=== PATIENT | male | born 1955 | race Caucasian/White ===

== ENCOUNTER 2024-06-09 14:10 | Inpatient (IN) | payer OTHER, MEDICARE, SELFPAY ==
[2024-06-09 11:45] VITALS: BP 156/98
--- NOTE | 2024-06-09 12:15 | ED.GENMED ---
History of Present Illness
General
Chief Complaint: Skin Problem
Source: patient
Exam Limitations: none
Time Seen by Provider: 06/09/24 12:04
History of Present Illness
History of Present Illness:
69-year-old male history of prediabetic and neuropathy history presents complaining of several days of worsening redness swelling and discharge from the right foot. He states he has had a wart on his foot for quite some time that became more
irritated. He denies fevers or chills. He was seen by his family doctor and sent here for further evaluation. No known injury. No other complaints at this time.
Phy Exam
Physical Exam
Physical Exam:
General: Well appearing male, NAD
HEENT: NC/AT
Heart: RRR, no murmurs
Lungs; CTA bilaterally
Skin: Ulcer noted to the plantar surface of the foot on the right side. This is fairly deep with surrounding erythema and soft tissue swelling. The whole right foot is swollen and erythematous there is a slight amount of erythema spreading into
the distal moreno.
Vascular: Palpable DP pulse right foot
Course
Orders/Labs/Results
Orders:
Orders
06/09/24 12:14
CR Foot - Right Min 3 Views Urgent
Comment:
Reason For Exam: infection
06/09/24 12:29
Complete Blood Count/With Diff Urgent
Comprehensive Metabolic Panel Urgent
Blood Culture Q30M
ABRAHAM Source: Blood/Venous
Specimen Description:
06/09/24 12:30
Blood Culture Q30M
ABRAHAM Source: Blood/Venous
Specimen Description:
06/09/24 13:17
Piperacillin/Tazo 3.375 Gram [Zosyn] 3.375 gram in 50 ml IV NOW
Vancomycin [Vancocin] 2,000 mg 0.9% Sodium Chloride 500 ml [Nss] 500 ml IV NOW
Abnormal Lab Results
06/09/24
12:29
WBC 11.9 H 10^3/uL
(4.8-10.8)
RBC 4.59 L 10^6/uL
(4.70-6.10)
MCH 31.4 H pg
(27.0-31.0)
Abs Immat Gran (auto) 0.1 H 10^3/uL
(0-0.05)
Absolute Neuts (auto) 9.2 H 10^3/uL
(1.4-6.5)
Absolute Monos (auto) 1.1 H 10^3/uL
(0.1-0.6)
Neutrophils % 77.1 H %
(42.2-75.2)
Lymphocytes % 12.6 L %
(20.5-51.1)
Glucose 116 H mg/dl
(70-99)
06/09/24 12:29
06/09/24 12:29
Vital Signs
Initial and Last Documented VS:
Initial Vital Signs
Temp Pulse Resp BP Pulse Ox
98.1 F 72 18 156/98 94
06/09/24 11:45 06/09/24 11:45 06/09/24 11:45 06/09/24 11:45 06/09/24 11:45
Last Documented Vital Signs
Temp Pulse Resp BP Pulse Ox
98.1 F 65 16 134/72 96
06/09/24 11:45 06/09/24 13:09 06/09/24 13:09 06/09/24 13:09 06/09/24 13:09
MDM/Problems Addressed
Differential Diagnosis Includes:
Very ulcer right foot with likely surrounding cellulitis. No palpable abscess. Consider presence of osteomyelitis as well. Check labs and blood cultures. X-ray right foot pending anticipate need for admission
*Critical Care Note
Total Time (30-74mins, 75-104mins- exclusive of procedures): Not Applicable
Update Note
Update Note:
X-ray right foot reviewed. White count is 11.9. Concern for cellulitis of the right foot may need surgical debridement. Vancomycin Zosyn ordered. Admitted to hospitalist
ED Attending Note
-
Portions of this chart may have been created with voice recognition software.� Occasional wrong word or��sound alike� substitutions may have occurred due to the inherent limitations of voice recognition software.
Discharge Plan
Departure
Patient Disposition: Admit
Date of Disposition: 06/09/24
Time of Disposition: 13:21
Presentation/result/management discussed w/ accepting MD/DO: Hospitalist
Discharge Problem:
Cellulitis
Referrals:
Uziel Sutton CRNP [Family Provider] -
Interventions
Interventions:
*Risk Screen - Suicide Last Done: 06/09/24 11:45
*General Assessment Last Done: 06/09/24 11:45
*Neglect/Abuse Screening Last Done: 06/09/24 11:45
*ED- Fall Risk Assessment Last Done: 06/09/24 12:22
*ED COVID-19 Vaccine History Last Done: 06/09/24 12:22
ED-Skin Assessment Last Done: 06/09/24 12:22
Discharge Date and Time
Print Language: VENEZUELAN
[2024-06-09 12:39] LABS: % Basophils 0.2 % (0-2); % Eosinophils 0.7 % (0-6); % Immature Granulocytes 0.4 % (0-0.5); % Lymphocytes 12.6 % (20.5-51.1); % Neutrophils 77.1 % (42.2-75.2); Absolute Eosinophils 0.1 10^3/uL (0-0.7); Absolute Immature Granulocytes 0.1 10^3/uL (0-0.05); Absolute Lymphocytes 1.5 10^3/uL (1.2-3.4); Absolute Monocytes 1.1 10^3/uL (0.1-0.6); Absolute Neutrophils 9.2 10^3/uL (1.4-6.5); Hemoglobin 14.4 g/dL (13.0-18.0); Mean Corp Hgb Conc. 35.1 g/dL (33.0-37.0); Mean Corpuscular Hgb 31.4 pg (27.0-31.0); Mean Corpuscular Volume 89.3 fL (80.0-94.0); Mean Platelet Volume 9.4 fL (7.4-10.4); Nucleated Red Blood Cells % 0 % (-); Platelet Count 213 10^3/uL (130-400); Red Blood Cell Count 4.59 10^6/uL (4.70-6.10); Red Cell Dist. Width 11.9 % (11.5-14.5); White Blood Cell Count 11.9 10^3/uL (4.8-10.8)
[2024-06-09 12:55] LABS: ALT (SGPT) 19 U/L (0-50); AST (SGOT) 23 U/L (17-59); Albumin 3.7 g/dl (3.5-5.0); Alkaline Phosphatase 74 U/L (38-126); Blood Urea Nitrogen 18 mg/dl (9-20); Calcium 9.5 mg/dl (8.4-10.2); Chloride 105 mmol/L (98-107); Glucose 116 mg/dl (70-99); Potassium 4.3 mmol/L (3.5-5.1); Sodium 138 mmol/L (135-145); Total Bilirubin 0.9 mg/dl (0.2-1.3); eGFR > 60.00
[2024-06-09 13:09] VITALS: BP 134/72
--- NOTE | 2024-06-09 13:21 | HPS.HSE ---
Family Physician
-
Family Physician: RASHIDA Dominguez
Chief Complaint
-
right foot wound
History of Present Illness
69-year-old male history of prediabetic and neuropathy, hyperlipidemia, hypertension, gout history presents complaining of several days of worsening redness swelling and discharge from the right foot. patient noted a callus on the plantar surface of
his foot 5 days. he noticed bloody drainage on his socks. he socked his foot in salt water and applied Neosporin with no relief in his symptoms. he noticed worsening swelling and redness to his feet and foot. denied fever, chills, chest pain,sob.
denied GARCÍA,dizzy or syncope. denied abdominal pain,n,v,d. denied dysuria or hematuria.
Patient received Zosyn and Vanco in ER. X-ray of foot ordered. Blood culture sent from ER. Admitting for further management
Medical History
Past Medical History
Past Medical History: Reports Other
Additional Past Medical History:
Hyperlipidemia, hypertension, gout, obstructive sleep apnea, hypertension GERD skin lesion
Past Surgical History: Reports None
Additional Past Surgical History:
right knee surgery
Social History
Tobacco: Non-smoker
Alcohol: Former
Drug: None
Personal:
Living: With Family
Family History
Family History: Not pertinent
Allergies / Home Medications
Allergies reflects when Allergies were last updated in [employer].
Home Medications with original date entered in [employer]
Allergy/Medication List:
Allergies
Allergy/AdvReac Type Severity Reaction Status Date / Time
No Known Allergies Allergy Verified 06/09/24 12:25
Home Medications
atorvastatin 40 mg tablet (Lipitor) 40 mg PO DAILY 06/09/24
Review of Systems
-
Constitutional: Reports No Symptoms
EENT: Reports No Symptoms
Respiratory: Reports No Symptoms
Cardiac: Reports No Symptoms
Abdomen/GI: Reports No Symptoms
: Reports No Symptoms
Musculoskeletal: Reports No Symptoms
Skin: Reports Other (Right foot wound, redness, swelling swelling)
Neurological: Reports No Symptoms
Endocrine: Reports No Symptoms
Hematologic/Lymphatic: Reports No Symptoms
Psych: Reports No Symptoms
Physical Exam
Vital Signs
Vital Signs
Temp Pulse Resp BP Pulse Ox
98.1 F 65 16 134/72 96
06/09/24 11:45 06/09/24 13:09 06/09/24 13:09 06/09/24 13:09 06/09/24 13:09
Physical Exam
General: Well Developed, Well Nourished and No Apparent Distress
HEENT: NormoCephalic, Moist mucous membranes and Atraumatic
Respiratory: Clear
Cardiac: S1/S2 and Regular Rhythm; No Murmur or Rub
GI: Soft, Non Tender, Non Distended and Normal Bowel Sounds; No Organomegaly
Rectal: Deferred by Provider
Musculoskeletal: No Clubbing, No Cyanosis and No Edema
Skin: Rash and Other (Ulcer noted to the plantar surface of the foot on the right side. This is fairly deep with surrounding erythema and soft tissue swelling. The whole right foot is swollen and erythematous there is a slight amount of erythema
spreading into the distal moreno.)
Neuro: AO x 3 and Nonfocal/grossly intact
Psych: Calm
Laboratory Results
-
06/09/24 12:29
06/09/24 12:29
Laboratory Results
Total Bilirubin 0.9 mg/dl (0.2-1.3) 06/09/24 12:29
AST 23 U/L (17-59) 06/09/24 12:29
ALT 19 U/L (0-50) 06/09/24 12:29
Alkaline Phosphatase 74 U/L (38-126) 06/09/24 12:29
Data Reviewed
-
Lab Data: Labs Reviewed by me
Impression/Plan
-
# Infected foot ulcer right foot
- WBC 11.9
- Vanco and Zosyn continue
- Foot x-ray pending
- Blood culture sent from ER
- Tylenol as needed for fever pain
- obtain wound culture
-arterial US with NHUNG
-vascular consulted
# Essential hypertension
#Hyperlipidemia
- Statin, lisinopril continued
# History of gout
- Allopurinol continued
# DVT prophylaxis
- Lovenox
# CODE STATUS
- Full code
[2024-06-09 13:24] LABS: Carbon Dioxide 23 mmol/L (22-30); Total Protein 6.1 g/dl (6.3-8.2)
[2024-06-09 13:35] VITALS: BMI 37.2
[2024-06-09] MEDS: ZOSYN 50 IV (13:39)
--- NOTE | 2024-06-09 14:03 | W.PN.UPDATE ---
Update Note
Progress Note Update
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
the right foot 5 days ago.� No fevers or chills.� No history of diabetes but was prediabetic at some point.
He had palpable DP pulse on right foot.
Leukocytosis on labs.� Foot x-ray pending.
Concerning for infected ulcer of right plantar foot with surrounding cellulitis and possible underlying vascular insufficiency.� Check wound culture.� Vancomycin/Zosyn.� Check arterial ultrasound.� Podiatry consulted.� Vascular surgery consulted.�
Check hemoglobin A1c.
[2024-06-09 14:10] VITALS: BMI 38.2
[2024-06-09] MEDS: VANCOCIN 540 MG IV (14:37)
--- NOTE | 2024-06-09 15:29 | W.PN.UPDATE ---
Update Note
Progress Note Update
Seen and evaluated while he was obtaining his ultrasound in the ultrasound suite (during his ER visit). Seen with nurse practitioners, full consultation to follow. Briefly 69-year-old male, nondiabetic, with right foot plantar fifth metatarsal
ulceration. Patient notes that following the Moderna COVID injection a year or 2 ago he had flexions/contractures of both knees and had difficulty walking. He had significant complications and had seen multiple orthopedists and finally was seen by
an orthopedist at [place] who had suggested physical therapy. He notes that since then he has improved and now is walking normally. He notes that he has not had any changes in the mechanics of his walking that he notes. He is not really clear how
this ulceration developed. Was referred to the emergency room by his PCP. Patient notes that he had a wart in that vicinity prior. Denies any peripheral arterial disease. No claudication type symptoms. No significant cardiovascular risk factors
(no coronary artery disease, no tobacco use, no diabetes).
On exam/he is awake and alert. Head is normocephalic and atraumatic. Eyes are anicteric. Neck is soft without jugular venous distention. Breathing is unlabored. Abdomen is soft, nondistended, nontender. Lower extremity with 2+ femoral and
popliteal pulses palpable bilaterally. On the right side he has bounding 2+ DP and PT pulses. He has moderate swelling of the right foot and the metatarsal area (fifth metatarsal plantar aspect). This is in the vicinity of the ulceration. Left
lower extremity with 1+ or 1+/2+ DP and PT palpable. Slightly weaker than the right side. No ulcerations or rubor in that foot.
Noninvasive studies reviewed while he was undergoing them. Duplex with no significant stenosis. Bilateral ankle-brachial indices are within normal limits. Bilateral toe brachial indices are mildly decreased. Toe pressure on the right side is 90
mmHg.
Plan/ No clear evidence of significant arterial insufficiency. May be just small vessel disease or vasospastic disease. Regardless with a toe pressure of 90 mm he should have adequate perfusion for wound healing. He has strong bounding
pulsations. Nothing to suggest an adequate arterial flow to warrant more urgent arterial intervention. This appears to me more so to be a infection in the fifth metatarsal. Would recommend podiatry evaluation and/or further imaging like x-ray of
the foot or MRI. I will sign off. Please call with questions. Patient can follow-up with me in the office to confirm adequacy of healing and if not healing can schedule at that time for arteriogram. We can see him in the office in 2 to 4 weeks.
--- NOTE | 2024-06-09 15:30 | CON.VAS ---
Consultation
Consultation Request
Date/Time Consultation Performed: 06/09/2024 1500
Requesting Provider: Hospitalist
Performing Provider: Pinky Novoa NP-C for Micah Rucker MD
Reason for Consultation: Right foot heel wound
Medical History
-
Chief Complaint: Right foot heel wound
History of Present Illness:
This 69-year-old male with significant past medical history for GERD, hypertension, hyperlipidemia, gout, and obstructive sleep apnea who presents to [facility] with reports of increased drainage, pain, and redness from right foot
wart/ulceration over the past several days. He was seen by PCP who referred him to ED. Patient also endorses significant ortho history following the Moderna COVID injection a year or 2 ago he had flexions/contractures of both knees and had
difficulty walking. He had significant complications and had seen multiple orthopedists and finally was seen by an orthopedist at [place] who had suggested physical therapy. He notes that since then he has improved and now is walking normally. He
notes that he has not had any changes in the mechanics of his walking that he notes. He is not really clear how this ulceration developed. Patient notes that he had a wart in that vicinity prior. Denies any peripheral arterial disease. No
claudication type symptoms. No significant cardiovascular risk factors (no coronary artery disease, no tobacco use, no diabetes).
Past Medical History
Past Medical History: GERD, HTN and Other (Hyperlipidemia, gout, obstructive sleep apnea)
Social History
Tobacco: Non-Smoker
Alcohol: Former
Drug: None
Personal:
Living: With Family
Allergies / Home Medications
Allergy/AdvReac Type Severity Reaction Status Date / Time
No Known Allergies Allergy Verified 06/09/24 12:25
�Medication �Instructions �Recorded �Confirmed �Type
allopurinol 300 mg tablet 300 mg PO DAILY 06/09/24 06/09/24 History
atorvastatin 40 mg tablet (Lipitor) 40 mg PO QPM 06/09/24 06/09/24 History
ibuprofen 400 mg tablet 400 mg PO Q6HPRN PRN mild pain 06/09/24 06/09/24 History
lisinopril 10 mg tablet 10 mg PO DAILY 06/09/24 06/09/24 History
omega 3-dyz-poi-fish oil 60 mg-90 1 cap PO DAILY 06/09/24 06/09/24 History
mg-500 mg capsule (Fish Oil)
Review of Systems
-
History Source: Patient
Constitutional: Reports No Symptoms
EENT: Reports No Symptoms
Respiratory: Reports No Symptoms
Cardiac: Reports No Symptoms
Vascular: Denies Leg Pain / Claudication
Abdomen/GI: Reports No Symptoms
: Reports No Symptoms
Musculoskeletal: Reports No Symptoms
Skin: Reports Other (right foot upper sole of foot with ulceration, drainage, redness, tender to palpation )
Neurological: Reports No Symptoms
Endocrine: Reports No Symptoms
Physical Exam
Vital Signs
Temp Pulse Resp BP Pulse Ox
98.1 F 65 16 134/72 96
06/09/24 11:45 06/09/24 13:09 06/09/24 13:09 06/09/24 13:09 06/09/24 13:09
Lab Results
06/09/24 12:29
06/09/24 12:29
Physical Exam
General: No Apparent Distress
HEENT: Normocephalic, Anicteric and Atraumatic
Respiratory: Non Labored Respirations
Cardiac: Negative JVD
GI: Soft, Non Tender and Non Distended
Musculoskeletal: Edema (BL LE trace edema )
Skin: Warm
Neuro: AO x 3
Pulses: Bilateral Dorsalis Pedis: +2 and Bilateral Posterior Tibial: +2
Assessment / Plan
-
Assessment: 69 year old male with right foot ulceration and no clear evidence of significant arterial insufficiency
Plan:
No clear evidence of significant arterial insufficiency. He has strong bounding pulsations. Nothing to suggest an adequate arterial flow to warrant more urgent arterial intervention. This appears to me more so to be a infection in the fifth
metatarsal. Would recommend podiatry evaluation and/or further imaging like x-ray of the foot or MRI. Vascular surgery will sign off. Please call with questions. Patient can follow-up with me in the office to confirm adequacy of healing and if
not healing can schedule at that time for arteriogram. We can see him in the office in 2 to 4 weeks.
[2024-06-09 17:25] VITALS: BP 153/87
--- NOTE | 2024-06-09 17:36 | W.CS.POD ---
Consult Summary - Podiatry
-
Pt seen in ED for infected ulcer of the right foot sub met 5
He denies any history of trauma and has no pain due to neuropathy.
after debridement of the wound it was noted that the ulcer probes to bone
vascular status is intact
x-ray is inconclusive for osteomyelitis but shows gas in the tissues, an MRI was ordered to rule out abscess or osteo
I have reached out to Dr. Macias for surgical consultation due to the gas in tissues for an urgent I&D and possible bone biopsy
consult has been dictated
[2024-06-09 17:54] VITALS: BMI 37.7
--- NOTE | 2024-06-09 17:57 | PHA.VAN.IN ---
Assessment
- Assessment
Renal Function: Appears similar to baseline (09/06/20 BASELINE SCR: 1.0)
Concomitant Antimicrobials: ZOSYN
- Previous Dosing Experience
Previous Regimen: NONE
AUC Dosing Plan
- Dosing Variables
Dosing Weight (kg): 120.8
Dosing CrCl (ml/min): 100
Vd coefficient (L/kg): 0.6
- Empiric Dosing
Initial / Loading Dose: 2GM
Maintenance Regimen: 1500MG IV Q12H
Estimated AUC (mcg*h/mL): 505
Estimated Peak (mcg*h/mL): 31.9
Estimated Trough (mcg/ml): 12.7
Estimated Half Life (H): 7.9
Pharmacokinetics Vancomycin I
- -
Patient Age: 69
Patient Sex: Male
Vancomycin Day #: 1
Indication: Skin And Soft Tissue ([R] FOOT ULCER/POSSIBLE OSTEO)
Requesting Provider: KAMLA
Height / Weight:
Height 5 ft 10 in
Actual Weight 119.204 kg
Pertinent Past Medical History: PRE-DIABETIC. BG = 116
- Vital Signs / Lab Results
Temp Pulse Resp BP Pulse Ox
97.7 F 64 20 153/87 96
06/09/24 17:25 06/09/24 17:25 06/09/24 17:25 06/09/24 17:25 06/09/24 17:25
Lab Results - Hematology
06/09/24
12:29
WBC 11.9 H
Lab Results - Chemistry
06/09/24
12:29
BUN 18
Creatinine 0.9
Albumin 3.7
Microbiology Results
06/09/24 14:16 Gram Stain - Preliminary
Foot - Right
[2024-06-09] MEDS: LOVENOX 40 MG SC (18:23)
[2024-06-09] MEDS: ZOSYN 100 IV (19:57)
--- NOTE | 2024-06-09 21:51 | W.CS.POD ---
Consult Summary - Podiatry
-
This patient is a 69 yo male, prediabetic with peripheral neuropathy admitted today with and infected ulcer of the plantar right foot and RLE cellulitis. 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 Perdomo for urgent care of suspected abscess/gas in the
tissues.
The patient does not recall when the lesion developed, but has noticed drainage into his sock over the last several days with more recent intensifying redness and swelling of the right foot and leg. He denies fever, chills or sweats, nor stiffness
in the knee or groin. He saw his PCP who sent him to the ER for evaluation. The patient denies any LE rest pain, nor claudication symptoms in his lower extremities. He describes having developed a gait issue after receiving the COVID ([place])
vaccine in 2021 with subsequent contractures of his knees, since resolved through physical therapy.
Afebrile, VSS.
WBC: 11.9
HbA1C: pending
LE exam: Pedal pulses palpable bilaterally: right DP/PT +2/4 stronger than left DP/PT +1/4. Normal temperature, turgor. Decreased digital hair growth, bilaterally. Moderate edema and erythema/cellulitis of the right foot, ankle and lower leg, right.
There is a 1.5 cm oblong ulceration of the plantar right forefoot, belying the fifth metatarsal head. There is bordering maceration/keratosis and non-viable tissue within the wound. The wound is full skin, subcutaneous tissue and deep fascia
thickness, probing directly to the fifth metatarsal head, as well as into the fourth interdigital space distally and dorsally. There is little to no discharge from the wound, no malodor.
06/09/24 LE arterial ultrasound:
1. Right ankle-brachial index 1.09, right toe brachial index 0.58. Minimal scattered plaque without focal significant stenosis demonstrated.
2. Left ankle brachial index 1.14, left toe brachial index 0.62. Scattered arterial plaque without focal significant stenosis demonstrated.
06/09/24 XRAY report, RIGHT FOOT: Large amount of soft tissue swelling along the forefoot. There is soft tissue defect with associated gas along the plantar aspect of the forefoot adjacent to the head of the fifth metatarsal consistent with the given
history of wound. There is some gas within the webspace between the fourth and fifth toes. No evidence of osteomyelitis.
Assessment:
Cellulitis RLE and Infected, neurotrophic ulceration of the right foot, probing to bone.
Pre-diabetic with peripheral neuropathy.
Plan:
There is no gas in the tissues. XRAY findings represent a deep ulcer that is open to air. No immediate surgical intervention is necessary.
The wound was cleansed with saline at bedside and dressed.
Vascular note appreciated.
Await MRI findings-suspicious for infectious involvement of the fifth metatarsal.
Patient was strongly advised to remain off the right foot (found in room tonight with shoes and socks on)
Will follow.
[2024-06-09 23:19] VITALS: BP 154/88
[2024-06-10] MEDS: ZOSYN 100 IV ×4 (01:01→20:56)
--- NOTE | 2024-06-10 03:49 | DOWNTIME ---
There was a [employer] Client Cane Piler Downtime on 06/10/2024 from 0200 to 06/11/2023 at 0318 . Downtime documentation of patient's care, including medication administrations, has been reconciled in the electronic record per guidelines. Refer to the
patient's paper chart under the miscellaneous tab to see printed paper medication records and downtime forms.
[2024-06-10] MEDS: VANCOCIN 530 MG IV ×2 (06:09→19:01)
[2024-06-10 07:00] VITALS: BP 144/89
[2024-06-10 08:39] LABS: Hematocrit 43.9 % (39.0-52.0); Hemoglobin 15.3 g/dL (13.0-18.0); Mean Corp Hgb Conc. 34.9 g/dL (33.0-37.0); Mean Corpuscular Hgb 31.8 pg (27.0-31.0); Mean Corpuscular Volume 91.3 fL (80.0-94.0); Mean Platelet Volume 9.6 fL (7.4-10.4); Platelet Count 228 10^3/uL (130-400); Red Blood Cell Count 4.81 10^6/uL (4.70-6.10); Red Cell Dist. Width 12.3 % (11.5-14.5); White Blood Cell Count 10.3 10^3/uL (4.8-10.8)
[2024-06-10] MEDS: ZESTRIL 10 MG PO (08:41)
[2024-06-10] MEDS: ZYLOPRIM 300 MG PO (08:41)
[2024-06-10] MEDS: LIPITOR 40 MG PO (08:42)
--- NOTE | 2024-06-10 09:13 | PHA.VAN.FU ---
Vancomycin Assessment / Plan
- Assessment
Renal Function: Stable (0.9)
WBC's are: WNL (10.3)
In the past 24 hrs, patient has been: Afebrile
Concomitant Antimicrobials: Piperacillin/Tazobactam
- Dosing Plan
Continue: Vanco 1500mg Q12H
- Monitoring Plan
No level(s) ordered at this time: Consider in the next few days
- Follow Up
Pharmacy will continue to follow.
Vancomycin Follow UP
- -
Patient Age: 69
Patient Sex: Male
Vancomycin Day #: 2
Indication: Skin And Soft Tissue ([R] FOOT ULCER/POSSIBLE OSTEO)
Requesting Provider: KAMLA
Height / Weight:
Height 5 ft 10 in
Actual Weight 119.204 kg
Pertinent Past Medical History: PRE-DIABETIC. BG = 116
- Vital Signs / Lab Results
Temp Pulse Resp BP Pulse Ox
98.0 F 66 16 144/89 98
06/10/24 07:00 06/10/24 07:00 06/10/24 07:00 06/10/24 07:00 06/10/24 07:00
Lab Results - Hematology
06/09/24 06/10/24
12:29 06:46
WBC 11.9 H 10.3
Lab Results - Chemistry
06/09/24
12:29
BUN 18
Creatinine 0.9
Albumin 3.7
Microbiology Results
06/09/24 14:16 Gram Stain - Preliminary
Foot - Right
[2024-06-10 10:21] LABS: Glycohemoglobin (HgbA1c) 5.3 % (4.0-5.6)
--- NOTE | 2024-06-10 12:25 | W.PN.HOSP.TC ---
Today's Communication/Plan
-
Assessment / Plan
Assessment / Plan
General: No Apparent Distress, Comfortable and Conversant
HEENT: NormoCephalic, Moist mucous membranes, Atraumatic
Respiratory: Clear and Non Labored Respirations
Cardiac: S1/S2 and Regular Rhythm; No Rub or Gallop
GI: Soft, Non Tender, Non Distended and Normal Bowel Sounds
Musculoskeletal: Bilateral lower extremity edema, right foot wound dressing in place
Skin: Warm and dry
: NO Gaspar
Neuro: Awake, Alert, Nonfocal/grossly intact
Psych: Calm and Intact Judgment/Insight
Mr. Gutierrez is a 69-year-old male with a medical history of lower extremity neuropathy, hypertension, MERCEDES, gout, prediabetes, and complications from Moderna COVID vaccination who presented with worsening redness swelling and drainage from a wound
on his right plantar surface. This has been ongoing for about 5 days prior to arrival. He is not experiencing any pain in the foot which he says is a problem because he was initially not aware of the wound. He has been started on antibiotics and
admitted for further evaluation and management.
Right foot wound:
- Plantar surface
- MRI this morning shows evidence of osteomyelitis and abscess
- Continue broad-spectrum antibiotics with vancomycin and Zosyn
- Further recommendations from podiatric surgery
- No evidence of vascular compromise following evaluation by vascular surgery team, limb is adequately perfused distally
- Local wound care
- Pain control as needed although currently this is not a problem due to his neuropathy
Hypertension:
- Continue home lisinopril 10 mg p.o. daily
Gout:
- Continue home allopurinol 3 mg p.o. daily
CODE STATUS: Full code
Anticipated Discharge: > 48 hours
Subjective/Interval History
-
Date of Service: June 10, 2024
Patient was seen and examined at bedside this morning. Awaiting MRI for evaluation of possible right foot osteomyelitis. Does not complain of pain. No evidence of vascular compromise per vascular surgery evaluation.
Objective Data
-
Labs:
Laboratory Results
06/10/24
06:46
WBC 10.3
Hgb 15.3
Hct 43.9
Plt Count 228
Vital Signs:
Vital Signs
Temp Pulse Resp BP Pulse Ox
98.0 F 66 16 144/89 98
06/10/24 07:00 06/10/24 07:00 06/10/24 07:00 06/10/24 07:00 06/10/24 07:00
Review of Systems
-
History Source: Patient
All other systems: Reviewed and negative
Physical Exam
-
General: No Apparent Distress
[2024-06-10 15:00] VITALS: BP 121/73
--- NOTE | 2024-06-10 16:15 | CM ---
Alert awake oriented patient who lives with his Rola who lives in a 2 story home.He is independent in driving and in all activities of daily living.Explained role of CM pt declined to answer IA questions.Pt declined VN. His Rola will
drive him home.Adv Directive given . Pt said he will not complete.
Pharmacy Niur[facility] Astorga
PCP Roberto Levine
PLAN Home Declined need
--- NOTE | 2024-06-10 18:28 | W.PN.POD ---
Today's Communication
Today's Communication
Cellulitis/Osteomyelitis, right foot.
Anticipate OR tomorrow for debridement.
NPO after midnight.
Hold Lovenox tonight.
Assessment / Plan
-
Assessment:
Infected, neurotrophic ulceration of the right foot, with osteomyelitis of the fifth metatarsal and abscess fifth MTPJ.
Pre-diabetic with peripheral neuropathy.
HTN
H/O Gout
Plan:
Vascular note appreciated.
The patient requires debridement of infected and non-viable bone and soft tissue, right foot.
Anticipate patient to OR tomorrow. NPO after midnight ordered.
Discussed anticipated procedure(s) and post-operative treatment course. All questions were answered to the patient's satisfaction.
Patient was strongly advised to remain off the right foot (found in room tonight with dressing half off the foot in a dependent position)
We told him he must keep the foot at bed level or elevated.
Subjective
Chief Complaint
Infected neurotrophic ulceration, right foot.
Subjective
Patient seen at bedside, resting comfortably. Denies fever, chills or sweats.
Objective
Temp Pulse Resp BP Pulse Ox
98.2 F 69 18 121/73 99
06/10/24 15:00 06/10/24 15:00 06/10/24 15:00 06/10/24 15:00 06/10/24 15:00
06/10/24 06:46
06/09/24 12:29
Vital Signs and Lab results were reviewed.
Afebrile, VSS.
WBC: 10.3 down from 11.9
HbA1C: 5.3 B
LE exam: Pedal pulses palpable bilaterally: right DP/PT +2/4 stronger than left DP/PT +1/4. Normal temperature, turgor. Decreased digital hair growth, bilaterally. Moderate to severe edema and erythema/cellulitis of the right foot, ankle and lower
leg, right. There is a 1.5 cm oblong ulceration of the plantar right forefoot, belying the fifth metatarsal head. There is bordering maceration/keratosis and non-viable tissue within the wound. The wound is full skin, subcutaneous tissue and deep
fascia thickness, probing directly to the fifth metatarsal head, as well as into the fourth interdigital space distally and dorsally. There is little to no discharge from the wound, no malodor.
06/09/24 LE arterial ultrasound:
1. Right ankle-brachial index 1.09, right toe brachial index 0.58. Minimal scattered plaque without focal significant stenosis demonstrated.
2. Left ankle brachial index 1.14, left toe brachial index 0.62. Scattered arterial plaque without focal significant stenosis demonstrated.
06/09/24 XRAY report, RIGHT FOOT: Large amount of soft tissue swelling along the forefoot. There is soft tissue defect with associated gas along the plantar aspect of the forefoot adjacent to the head of the fifth metatarsal consistent with the given
history of wound. There is some gas within the webspace between the fourth and fifth toes. No evidence of osteomyelitis.
06/10/24 MRI, RIGHT FOOT: Early changes of acute osteomyelitis involving the plantar aspect of the head of the fifth metatarsal adjacent to the plantar soft tissue wound. Soft tissue abscess wrapping around the plantar fifth metatarsophalangeal
joint into the fourth intermetatarsal space.
[2024-06-10 23:25] VITALS: BP 137/86
[2024-06-11] VITALS (10 sets, daily range): BP systolic 92–157; BP diastolic 54–105
[2024-06-11] MEDS: ZOSYN 100 IV ×3 (02:09→20:36)
[2024-06-11] MEDS: VANCOCIN 530 MG IV ×2 (06:15→18:08)
--- NOTE | 2024-06-11 08:40 | PHA.VAN.FU ---
Vancomycin Assessment / Plan
- Assessment
Renal Function: No New Labs Today (last SCr 0.9, baseline)
WBC's are: Trending Up (10.3->12.5)
In the past 24 hrs, patient has been: Afebrile
Concomitant Antimicrobials: Piperacillin/Tazobactam
- Dosing Plan
Continue: Vanco 1500mg Q12H
- Monitoring Plan
Peak Level: 06/11/24 2130
Trough Level: 06/12/24 0530
- Follow Up
Pharmacy will continue to follow.
Vancomycin Follow UP
- -
Patient Age: 69
Patient Sex: Male
Vancomycin Day #: 3
Indication: Skin And Soft Tissue ([R] FOOT ULCER/POSSIBLE OSTEO)
Requesting Provider: KAMLA
Height / Weight:
Height 5 ft 10 in
Actual Weight 119.204 kg
Pertinent Past Medical History: PRE-DIABETIC. BG = 116
- Vital Signs / Lab Results
Temp Pulse Resp BP Pulse Ox
98.1 F 69 18 137/86 99
06/10/24 23:25 06/10/24 23:25 06/10/24 23:25 06/10/24 23:25 06/10/24 23:25
Lab Results - Hematology
06/09/24 06/10/24
12: 06:46
WBC 11.9 H 10.3
Lab Results - Chemistry
06/09/24
12:29
BUN 18
Creatinine 0.9
Albumin 3.7
Microbiology Results
06/09/24 14:16 Wound Culture - Preliminary
Foot - Right Gram negative bacilli
Gram Stain - Preliminary
06/09/24 12:29 Blood Culture - Preliminary
Blood/Venous No Growth in 24 hours- Final report to follow
06/09/24 12:30 Blood Culture - Preliminary
Blood/Venous No Growth in 24 hours- Final report to follow
[2024-06-11 08:46] LABS: Hematocrit 46.5 % (39.0-52.0); Hemoglobin 16.2 g/dL (13.0-18.0); Mean Corp Hgb Conc. 34.8 g/dL (33.0-37.0); Mean Corpuscular Hgb 31.1 pg (27.0-31.0); Mean Corpuscular Volume 89.3 fL (80.0-94.0); Mean Platelet Volume 9.4 fL (7.4-10.4); Platelet Count 270 10^3/uL (130-400); Red Blood Cell Count 5.21 10^6/uL (4.70-6.10); Red Cell Dist. Width 12.1 % (11.5-14.5); White Blood Cell Count 12.5 10^3/uL (4.8-10.8)
[2024-06-11] MEDS: ZYLOPRIM PO (10:28)
[2024-06-11] MEDS: ZESTRIL 10 MG PO (10:29)
[2024-06-11] MEDS: LIPITOR PO (10:29)
[2024-06-11] MEDS: PEPCID 20 MG PO (10:34)
[2024-06-11] MEDS: ZOSYN IV (13:56)
--- NOTE | 2024-06-11 14:33 | W.PN.HOSP.TC ---
Today's Communication/Plan
-
Assessment / Plan
Assessment / Plan
General: No Apparent Distress, Comfortable and Conversant
HEENT: NormoCephalic, Moist mucous membranes, Atraumatic
Respiratory: Clear and Non Labored Respirations
Cardiac: S1/S2 and Regular Rhythm; No Rub or Gallop
GI: Soft, Non Tender, Non Distended and Normal Bowel Sounds
Musculoskeletal: Bilateral lower extremity edema, right foot wound dressing in place
Skin: Warm and dry
: NO Gaspar
Neuro: Awake, Alert, Nonfocal/grossly intact
Psych: Calm and Intact Judgment/Insight
Mr. Gutierrez is a 69-year-old male with a medical history of lower extremity neuropathy, hypertension, MERCEDES, gout, prediabetes, and complications from Moderna COVID vaccination who presented with worsening redness swelling and drainage from a wound
on his right plantar surface. This has been ongoing for about 5 days prior to arrival. He is not experiencing any pain in the foot which he says is a problem because he was initially not aware of the wound. He has been started on antibiotics and
admitted for further evaluation and management.
Right foot wound:
- Plantar surface
- MRI shows evidence of osteomyelitis and abscess
- Plan for OR today 06/11 with podiatry
- Continue broad-spectrum antibiotics with vancomycin and Zosyn
- No evidence of vascular compromise following evaluation by vascular surgery team, limb is adequately perfused distally
- Local wound care
- Pain control as needed although currently this is not a problem due to his neuropathy
Hypertension:
- Continue home lisinopril 10 mg p.o. daily
Gout:
- Continue home allopurinol 3 mg p.o. daily
CODE STATUS: Full code
Anticipated Discharge: 24 - 48 hours
Subjective/Interval History
-
Date of Service: June 11, 2024
Patient was seen and examined at bedside this morning. Awaiting OR with podiatry for treatment of right foot osteomyelitis and abscess.
Objective Data
-
Labs:
Laboratory Results
06/11/24
08:06
WBC 12.5 H
Hgb 16.2
Hct 46.5
Plt Count 270
Vital Signs:
Vital Signs
Temp Pulse Resp BP Pulse Ox
98 F 72 18 157/93 98
06/11/24 07:00 06/11/24 07:00 06/11/24 07:00 06/11/24 07:00 06/11/24 07:00
I&O
06/10/24 06/11/24 06/12/24
06:59 06:59 06:59
Intake Total 1350 / 1350 100 / 100
Balance 1350 / 1350 100 / 100
Review of Systems
-
History Source: Patient
All other systems: Reviewed and negative
Physical Exam
-
General: No Apparent Distress
--- NOTE | 2024-06-11 15:07 | W.PN.UPDATE ---
Update Note
Progress Note Update
-Discussed the planned procedure of debridement of infected and non-viable skin, soft tissue and bone for the treatment of osteomyelitis, right foot. The patient understands the risks, benefits and possible complications of the proposed
procedure(s), as well as the potential need for further surgery. Patient consent for the aforementioned surgery obtained at bedside.
-Partial fifth ray amputation, right foot. Specimen for infected bone sent to pathology and micro. Clean bone margin sent for pathology as well. Anticipate surgical cure. Minimal to no blood loss.
-Patient tolerated the procedure and anesthesia well. Post op condition stable and VSI to the RLE. Prognosis: Good
Resume diet
Post Op XRAYS ordered, right foot.
NWB right foot for 24 hours.
--- NOTE | 2024-06-11 16:07 | PTCARENOTE ---
Pt arrived to 2S in bed, full assessment completed. RLE DSG C/D/I, + right popliteal and posterior tibialis pulses palpated. +1 edema noted to RLE, foot is pink, warm to touch and with + cap refill. Pt educated on NWB to RLE and need for lawall heel
boot, verbalized understanding. Bed locked and in the lowest position, safety maintained. Oriented to room and call eastman.
[2024-06-11] MEDS: LOVENOX 40 MG SC (18:07)
[2024-06-12 00:27] VITALS: BP 116/67
[2024-06-12] MEDS: ZOSYN 100 IV ×2 (01:35→08:06)
[2024-06-12] MEDS: VANCOCIN 530 MG IV (05:18)
[2024-06-12 05:47] LABS: Hematocrit 40.2 % (39.0-52.0); Mean Corp Hgb Conc. 34.8 g/dL (33.0-37.0); Mean Corpuscular Hgb 31.5 pg (27.0-31.0); Mean Corpuscular Volume 90.3 fL (80.0-94.0); Mean Platelet Volume 9.5 fL (7.4-10.4); Platelet Count 235 10^3/uL (130-400); Red Blood Cell Count 4.45 10^6/uL (4.70-6.10); Red Cell Dist. Width 11.9 % (11.5-14.5); White Blood Cell Count 18.3 10^3/uL (4.8-10.8)
[2024-06-12 06:16] LABS: Blood Urea Nitrogen 22 mg/dl (9-20); Calcium 8.9 mg/dl (8.4-10.2); Carbon Dioxide 26 mmol/L (22-30); Chloride 108 mmol/L (98-107); Estimated Creatinine Clearance 59 ml/min; Glucose 104 mg/dl (70-99); Potassium 4.5 mmol/L (3.5-5.1); Sodium 143 mmol/L (135-145); eGFR 49.77
[2024-06-12] MEDS: ZYLOPRIM 300 MG PO (08:05)
[2024-06-12] MEDS: LIPITOR 40 MG PO (08:06)
[2024-06-12] MEDS: ZESTRIL 10 MG PO (08:06)
[2024-06-12 08:10] VITALS: BP 118/70
[2024-06-12] MEDS: PEPCID 20 MG PO (08:10)
--- NOTE | 2024-06-12 09:20 | PHA.VAN.FU ---
Vancomycin Assessment / Plan
- Assessment
Renal Function: SCR Increasing (0.9 to 1.5)
WBC's are: Trending Up
In the past 24 hrs, patient has been: Afebrile
Concomitant Antimicrobials: Piperacillin-tazobactam
- Assessment - Therapeutic Drug Monitoring
Extrapolated Cmax (mcg/mL): 26.6
Peak level was drawn: Appropriately
Extrapolated Cmin (mcg/mL): 18.4
Trough Drawn: Appropriately
Levels were drawn: At steady state
Calculated AUC (mcg*h/mL): 534
Calculated ke: 0.035
Calculated half life (H): 19.8
Calculated Vd (L): 160.6
Calculated Vanc CL (ml/min): 93.56
- Dosing Plan
Adjust Regimen to: DC 1500mg q12, change to dose by level due to SCr rise
- Monitoring Plan
Random Level: 06/13 AM
- Follow Up
Pharmacy will continue to follow.
Vancomycin Follow UP
- -
Patient Age: 69
Patient Sex: Male
Vancomycin Day #: 4
Indication: Skin And Soft Tissue ([R] FOOT ULCER/POSSIBLE OSTEO)
Requesting Provider: KAMLA
Height / Weight:
Height 5 ft 10 in
Actual Weight 119.204 kg
Pertinent Past Medical History: PRE-DIABETIC. BG = 116
- Vital Signs / Lab Results
Temp Pulse Resp BP Pulse Ox
97.9 F 69 18 118/70 98
06/12/24 08:10 06/12/24 08:10 06/12/24 08:10 06/12/24 08:10 06/12/24 08:10
Lab Results - Hematology
06/09/24 06/10/24 06/11/24
12:29 06:46 08:06
WBC 11.9 H 10.3 12.5 H
06/12/24
05:13
WBC 18.3 H
Lab Results - Chemistry
06/09/24 06/12/24
12:29 05:13
BUN 18 22 H
Creatinine 0.9 1.5 H
Estimated Creat Clear 59
Albumin 3.7
Microbiology Results
06/11/24 14:40 Tissue Culture - Preliminary
Bone No Growth After 18-24 Hours
Gram Stain - Preliminary
06/09/24 14:16 Wound Culture - Preliminary
Foot - Right Morganella morganii
Staphylococcus species
Enterococcus species
Streptococcus agalactiae
Streptococcus species
Gram Stain - Preliminary
06/09/24 12:29 Blood Culture - Preliminary
Blood/Venous No Growth in 48 hours- Final report to follow
06/09/24 12:30 Blood Culture - Preliminary
Blood/Venous No Growth in 48 hours- Final report to follow
Therapeutic Drug Monitoring
Vancomycin Peak 24.0 ug/ml (18-26) 06/11/24 22:32
Vancomycin Trough 19.0 ug/ml (5-20) 06/12/24 05:13
[2024-06-12 11:15] VITALS: BP 94/60
--- NOTE | 2024-06-12 12:48 | W.PN.HOSP.TC ---
Today's Communication/Plan
-
Assessment / Plan
Assessment / Plan
General: No Apparent Distress, Comfortable and Conversant
HEENT: NormoCephalic, Moist mucous membranes, Atraumatic
Respiratory: Clear and Non Labored Respirations
Cardiac: S1/S2 and Regular Rhythm; No Rub or Gallop
GI: Soft, Non Tender, Non Distended and Normal Bowel Sounds
Musculoskeletal: Bilateral lower extremity edema, right foot postoperative dressing in place
Skin: Warm and dry
: NO Gaspar
Neuro: Awake, Alert, Nonfocal/grossly intact
Psych: Calm and Intact Judgment/Insight
Mr. Gutierrez is a 69-year-old male with a medical history of lower extremity neuropathy, hypertension, MERCEDES, gout, prediabetes, and complications from Moderna COVID vaccination who presented with worsening redness swelling and drainage from a wound
on his right plantar surface. This has been ongoing for about 5 days prior to arrival. He is not experiencing any pain in the foot which he says is a problem because he was initially not aware of the wound. He has been started on antibiotics and
admitted for further evaluation and management.
Right foot wound:
- Plantar surface
- MRI showed evidence of osteomyelitis and abscess
- Status post OR 06/11 with podiatry, tolerated procedure well
- Nonweightbearing to right foot for first 24 hours
- Continue broad-spectrum antibiotics with vancomycin and Zosyn
- No evidence of vascular compromise following evaluation by vascular surgery team, limb is adequately perfused distally
- Further recommendations per podiatry
Hypertension:
- Continue home lisinopril 10 mg p.o. daily
Gout:
- Continue home allopurinol 3 mg p.o. daily
CODE STATUS: Full code
Anticipated Discharge: 24 - 48 hours
Subjective/Interval History
-
Date of Service: June 12, 2024
Patient was seen and examined at bedside this morning. He is status post right foot partial fifth ray amputation. He tolerated the procedure well.
Objective Data
-
Labs:
Laboratory Results
06/12/24
05:13
WBC 18.3 H
Hgb 14.0
Hct 40.2
Plt Count 235
Sodium 143
Potassium 4.5
Chloride 108 H
Carbon Dioxide 26
BUN 22 H
Creatinine 1.5 H
Glucose 104 H
Calcium 8.9
Vital Signs:
Vital Signs
Temp Pulse Resp BP Pulse Ox
97.8 F 72 16 94/60 98
06/12/24 11:15 06/12/24 11:15 06/12/24 11:15 06/12/24 11:15 06/12/24 11:15
I&O
06/11/24 06/12/24 06/13/24
06:59 06:59 06:59
Intake Total 1350 / 1350 1790 / 1790
Output Total 325 / 325
Balance 1350 / 1350 1465 / 1465
Review of Systems
-
History Source: Patient
All other systems: Reviewed and negative
Physical Exam
-
General: No Apparent Distress
--- NOTE | 2024-06-12 14:28 | W.PN.POD ---
Today's Communication
Today's Communication
Right foot clinically stable.
May be discharged.
Assessment / Plan
-
Assessment:
Infected, neurotrophic ulceration of the right foot, with osteomyelitis of the fifth metatarsal and abscess fifth MTPJ.
S/P one day partial fifth ray amputation and full thickness ulcer debridement, right foot.
Pre-diabetic with peripheral neuropathy.
HTN
H/O Gout
Plan:
Cellulitis clinically resolved, RLE. Anticipate surgical cure of osteomyelitis.
OK for discharge.
D/C Instructions: Recommend PO Antibiotics upon discharge:Keflex 500mg TID x 5 days, Keep dressing clean, dry and intact. Wound Care HHN: Adaptic, dry dressing dorsally, and Saline Wet to dry packing plantarly, with kerlix and Cortez wrap, every other
day.
Wedge surgical shoe at bedside. WB in surgical shoe and OOB to bathroom only.
Will follow in office: patient to make appointment for Friday06/15/24.
Subjective
Chief Complaint
S/P one day, partial fifth ray amputation, right foot in the treatment of osteomyelitis.
Subjective
Resting comfortably in bed. Patient relates feeling much better overall, denies fever, chills or sweats. No discomfort in the foot.
Objective
Temp Pulse Resp BP Pulse Ox
97.8 F 72 16 94/60 98
06/12/24 11:15 06/12/24 11:15 06/12/24 11:15 06/12/24 11:15 06/12/24 11:15
06/12/24 05:13
06/12/24 05:13
Vital Signs and Lab results were reviewed.
Right foot-Dressing is clean, dry and intact with minor blood staining laterally.
Vascular status to the right foot intact. Edema of the lower leg, ankle and foot considerably reduced. No evidence of cellulitis. No malodor, purulence, or local signs of infection noted.
5th ray incision line dorsally stable with viable wound edges well apposed and sutures intact. Packing pulled from dorsal and plantar sites. The lateral plantar ulceration site is also stable and viable with minor bleeding noted.
[2024-06-12 15:10] VITALS: BP 114/72
--- NOTE | 2024-06-12 16:36 | W.DCSUMMARY ---
Discharge Summary
Discharge Data
Date of Admission: 06/09/24
Date of Discharge: 06/12/24
-
Pending Results: No
Hospital Course
Mr. Gutierrez is a 69-year-old male with a medical history of lower extremity neuropathy, hypertension, MERCEDES, gout, prediabetes, and complications from Moderna COVID vaccination who presented with worsening redness swelling and drainage from a wound
on his right plantar surface. This has been ongoing for about 5 days prior to arrival. He is not experiencing any pain in the foot which he says is a problem because he was initially not aware of the wound. He was started on antibiotics and
admitted for further evaluation and management.
MRI of his right foot showed osteomyelitis of the fifth metatarsal and abscess of the fifth MTP joint. He was brought to the OR on 06/11 with podiatry for partial fifth ray amputation of his right foot and full-thickness ulcer debridement. He
tolerated the procedure well. He has been receiving IV vancomycin and Zosyn throughout his hospitalization. He was evaluated by vascular surgery who felt that his limb is adequately perfused distally and no vascular surgery of interventions were
required. He has been given a wedge surgical shoe. He should be weightbearing in surgical shoe and out of bed to bathroom only. He he will need close follow-up in the outpatient clinic with podiatry, planned appointment 06/15/2024.
Podiatry recommends wound care with home health nurse. He will be discharged to home with a prescription for 5 days of Keflex 500 mg p.o. 3 times daily.
General: No Apparent Distress, Comfortable and Conversant
HEENT: NormoCephalic, Moist mucous membranes, Atraumatic
Respiratory: Clear and Non Labored Respirations
Cardiac: S1/S2 and Regular Rhythm; No Rub or Gallop
GI: Soft, Non Tender, Non Distended and Normal Bowel Sounds
Musculoskeletal: Bilateral lower extremity edema, right foot postoperative dressing in place
Skin: Warm and dry
: NO Gaspar
Neuro: Awake, Alert, Nonfocal/grossly intact
Psych: Calm and Intact Judgment/Insight
Discharge Plan
-
Patient Disposition: Home (Routine Discharge)
Discharge Diagnosis/Procedures: Right foot osteomyelitis
Diet: Low Sodium
Activity: Do not bear weight R leg
Additional Activity: Weightbearing to right foot only with surgical shoe, out of bed to bathroom only
Other Services: VN
Activity Restrictions/Additional Instructions:
Wound Care HHN: Adaptic, dry dressing dorsally, and Saline Wet to dry packing plantarly, with kerlix and Cortez wrap, every other day.
Mr. Gutierrez is a 69-year-old male with a medical history of lower extremity neuropathy, hypertension, MERCEDES, gout, prediabetes, and complications from Moderna COVID vaccination who presented with worsening redness swelling and drainage from a wound
on his right plantar surface. This has been ongoing for about 5 days prior to arrival. He is not experiencing any pain in the foot which he says is a problem because he was initially not aware of the wound. He was started on antibiotics and
admitted for further evaluation and management.
MRI of his right foot showed osteomyelitis of the fifth metatarsal and abscess of the fifth MTP joint. He was brought to the OR on 06/11 with podiatry for partial fifth ray amputation of his right foot and full-thickness ulcer debridement. He
tolerated the procedure well. He has been receiving IV vancomycin and Zosyn throughout his hospitalization. He was evaluated by vascular surgery who felt that his limb is adequately perfused distally and no vascular surgery of interventions were
required. He has been given a wedge surgical shoe. He should be weightbearing in surgical shoe and out of bed to bathroom only. He he will need close follow-up in the outpatient clinic with podiatry, planned appointment 06/15/2024.
Podiatry recommends wound care with home health nurse. He will be discharged to home with a prescription for 5 days of Keflex 500 mg p.o. 3 times daily.
Referrals:
Mikael Macias DPM [Specified Professional Personl] - 06/13/24 (Call to make an appointment)
Uziel Sutton CRNP [Family Provider] -
Rebecca Garcia CRNP [Specified Professional Personl] - 06/29/24 10:45 am (Vascular surgery office follow up)
Prescriptions:
New
cephalexin 500 mg capsule
500 mg PO BID 5 Days Qty: 10 0RF
Continued
atorvastatin [Lipitor] 40 mg Tablet
40 mg PO QPM
lisinopril 10 mg Tablet
10 mg PO DAILY
allopurinol 300 mg Tablet
300 mg PO DAILY
omega 0-gza-bkc-fish oil [Fish Oil] 60-90-500 mg Capsule
1 cap PO DAILY
Discontinued
ibuprofen [Motrin] 400 mg Tablet
400 mg PO Q6HPRN PRN (Reason: mild pain)
Discharge Orders:
Discharge Patient (As Directed); Ordered 06/12/24
Ordered By: Kadeem Hernadez
Discharge Date and Time
Print Language: SETSWANA
--- NOTE | 2024-06-13 11:07 | CM ---
Late Entry
assistant community manager was notified by nursing that patient's physician wanted visiting nursing set up and patient is agreeable, correctional casework specialist reached out to patient at home and reviewed visiting nurse options and patient is agreeable to [facility], referral sent to
[facility].
Plan: Home with [facility].
== END 2024-06-12 18:29 | disposition home health service (06) | DRG 475 ==
LOC: 2 SOUTH 14:10
PROVIDERS: Physician Assistant; Registered Nurse; ADMITTING PHYSICIAN Hospitalist; ATTENDING PHYSICIAN Internal Medicine; CONSULT PHYSICIAN Podiatrist; CONSULT PHYSICIAN Podiatrist Foot & Ankle Surgery; EMERGENCY PHYSICIAN Emergency Medicine; FAMILY PHYSICIAN Nurse Practitioner Family; OTHER PHYSICIAN Nurse Practitioner
PROC: 0Y6M0ZF Detachment at Right Foot, Partial 5th Ray, Open Approach (ICD-10-PCS; 2024-06-11)
DX: M86.8X7 Other osteomyelitis, ankle and foot (principal); L03.115 Cellulitis of right lower limb; B95.1 Streptococcus, group B, as the cause of diseases classified elsewhere; B95.2 Enterococcus as the cause of diseases classified elsewhere; B95.7 Other staphylococcus as the cause of diseases classified elsewhere; E11.621 Type 2 diabetes mellitus with foot ulcer; L97.519 Non-pressure chronic ulcer of other part of right foot with unspecified severity; I10 Essential (primary) hypertension; G47.33 Obstructive sleep apnea (adult) (pediatric); M10.9 Gout, unspecified; E11.69 Type 2 diabetes mellitus with other specified complication
CPT/HCPCS: 88304; 88305; 88311; 73630; 73720; 80048; 80053; 80202; 83036; 85025; 85027; 87040; 87070; 87077; 87147; 87176; 87186; 87205; 93922; 93925; 96365; 96375; 99284; A9575